=== PATIENT | male | born 1995 | race Caucasian/White ===

== ENCOUNTER → 2018-11-09 08:07 | Day surgery (SDC) | payer BC ==
[~2018-11-09 08:07] MED LIST: Buffered Lidocaine 1% SYRIN* 1 ML/SYRINGE INTRADERM ONE; Bupivacaine 0.5% W/EPI SDV* 10 ML VIAL INJ ONE; Dexamethasone IV* 4 MG/ML 1 ML (4 MG) IV SLOW PU ONE; Dexamethasone IV* 4 MG/ML 1 ML (4 MG) ONE; DiMENhydriNATE IV* 50 MG/ML VIAL IV PUSH PRN; EPINEPHRINE 1 MG/ML 1 ML VIAL ONE; Famotidine IV* 10 MG/ML 2 ML (20 mg) IV ONE; Famotidine IV* 10 MG/ML 2 ML (20 mg) ONE; HYDROmorphone INJ1* 1 MG/ML SYRINGE IV PRN; Ketorolac INJ* 30 MG/ML 1 ML VIAL ONE; Lactated Ringers 1000 ML Bag* 1,000 ML IV SCH; Lidocaine 2% PF * 5 ML VIAL ONE; Midazolam* 1 MG/ML 5 ML VIAL (5 MG) ONE; Naloxone* 0.4 MG/ML 1 ML VIAL IV PRN; Ondansetron INJ* 2 MG/ML VIAL IV PRN; Ondansetron INJ* 2 MG/ML VIAL ONE; Propofol* 10 MG/ML 20 ML BTL ONE; ceFAZolin 2 GM in NS PREMIX(*) 2 GM/100 ML BAG IVPB ONE; fentaNYL* 50 MCG/ML 2 ML VIAL (100 MCG VIAL) IV PRN; fentaNYL* 50 MCG/ML 2 ML VIAL (100 MCG VIAL) ONE; fentaNYL* 50 MCG/ML 5 ML VIAL (250 MCG VIAL) ONE; oxyCODONE/Acetamin 5/325 MG* TAB PO PRN
[2018-11-09 17:26] VITALS: BP 133/75
--- NOTE | 2018-11-10 17:30 | OP ---
OPERATIVE REPORT: DATE OF OPERATION: 11/09/18 DATE OF : 89 SURGEON: Wilber Guaman MD CAFE COOK: TRUPTI Rasmussen A physician technology assistant was required for the length of the procedure for assistance with patient positioning, retraction, instrumentation, and closure. ANESTHESIOLOGIST: Dr. Conti. ANESTHESIA: General anesthesia, local anesthesia with Marcaine 0.5% with epinephrine 20 cc. PRE-OP DIAGNOSES: 1. Left knee anterior cruciate ligament re-tear, chronic. 2. Left knee possible medial meniscus tear. 3. Status post primary left knee anterior cruciate ligament reconstruction with hamstring allograft in 2012 performed in [place], [place], by another surgeon. POST-OP DIAGNOSES: 1. Left knee anterior cruciate ligament re-tear as early as 2015. 2. Left knee medial meniscus tear. 3. Status post left knee anterior cruciate ligament reconstruction with hamstring allograft in 2012 performed in [place], [place], by another surgeon. 4. Left knee loose body. OPERATIVE PROCEDURE: 1. Revision ACL reconstruction, arthroscopic, left knee, performed with Achilles allograft. 2. Left knee arthroscopic medial meniscus repair. 3. Left knee arthroscopic removal of loose body. 4. Modifier 22 for unusual or complex procedure given the nature of revision ACL surgery. This required removal of foreign body, prior instrumentation, re- drilling of the patient's 2 prior femoral and tibial tunnels. ANTIBIOTICS: Ancef 2 g IV. IV FLUIDS: 900 cc crystalloid. [id number] TIME: 190 minutes. TOURNIQUET TIME: Total tourniquet time was 135 minutes at 300 mmHg left thigh tourniquet. There was, however, a long tourniquet holiday of approximately 30 minutes such that the tourniquet was never close to being elevated for 120 continuous minutes. RADIATION EXPOSURE: Mini C-arm was utilized for approximately 2 images. SPECIMENS: Foreign bodies were removed from the femur. This included an interference screw likely made of PEEK. There was also a blue-colored sleeve that the PEEK screw was inside of. Some stump of prior graft was removed from both femoral and tibial tunnels as well as some suture from each tunnel. A loose body x1, small, was removed from the intercondylar notch, earlier on the case. IMPLANTS: Achilles allograft. MiteLudei 10 x 23 mm screw x1. This was placed in the femur. A Synthes 4.5 mm screw and washer was placed on the tibia. FasT-Fix 360 stitches x2. ESTIMATED BLOOD LOSS: Minimal. COMPLICATIONS: None. 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 The patient had had ACL reconstruction surgery in [place], [place], in 2012 or 2013. It sounds as if the patient had a hamstring allograft used for his reconstruction. The patient was unable to get me the operative note from that procedure. The patient did not do any postoperative physical therapy. His knee was stiff at first, but he eventually regained his range of motion. The patient states that he returned to all activities, but reinjured his knee in 2015, and at that point, his knee would give out. These episodes became worse in 2018. MRI was obtained which showed ACL re-tear and possible medial meniscus tear. The patient opted for surgery. The patient and I discussed risks and potential complications of surgery including bleeding, infection, nerve or blood vessel injury, blood clot, ACL re- tear, instrumentation issues, need for 2-stage revision procedure. We discussed at length the pros and cons of allograft and autograft, and I considered using either during this procedure. I obtained a CT scan which showed no significant dilatation, but also no filling in of the tunnels created with the patient's first surgery. These tunnels looked reasonably anatomic to me. Eventually, the patient and I decided on allograft. I had available for surgery both [id number] and Achilles allograft depending on the size of the tunnels encountered. DESCRIPTION OF PROCEDURE: In preoperative holding, the patient signed a written consent. Operative extremity was marked in preoperative holding. The patient was taken back to the operating room and placed supine on operating room table. Sedated and intubated. Tourniquet was placed around the left proximal thigh. A lateral post was applied to the bed. The left lower extremity was prepped and draped. Surgical time-out was performed. Esmarch was applied and tourniquet was elevated to 300 mmHg. Standard left knee anterolateral knee arthroscopy portal was established using standard technique. I entered the patellofemoral compartment. The patient had some fissures in the articular cartilage in the patellofemoral compartment and a loose body was present. I tried to remove this loose body while in the patellofemoral compartment. I made an incision about the superomedial aspect of the knee joint and inserted a grasper, but the loose body eluded me and moved. I moved down to the anterior aspect of the knee inferiorly. The loose body moved into the intercondylar notch. The ACL was noted to clearly be re-torn. I next moved to the medial compartment. I made an anteromedial knee arthroscopy portal under direct visualization. No significant articular cartilage damage in the medial compartment. I entered a probe into the medial compartment and probed the meniscus. There appeared to be a tear about the posterior horn. I therefore decided to do a medial meniscus repair. I note that the tear appeared to be peripheral. I next used all-inside meniscus fixation to repair the meniscus. I used 2 FasT-Fix 360 stitches. I placed 1 through the anterolateral and 1 through the anteromedial portal. After placing these stitches, I re-probed the meniscus and found it to be stable. I next moved briefly to the lateral compartment and saw no meniscus tear or articular cartilage injury. I debrided some synovitic tissue anterior to the intercondylar notch. I moved to the intercondylar notch. There were 2 loose bodies. I removed 1 with a solid grasper. The other eluded me and was not seen later in the case. It was relatively small. Looking into the notch, the ACL was clearly re-torn and I was ready to start ACL revision reconstruction. The knee was next placed in a [facility] knee fontaine. I reentered the knee and debrided soft tissue throughout the intercondylar notch. Fortunately, the femoral tunnel was relatively easily visible and visible inside of it was an interference screw without any degradation. This made me believe that it was a PEEK screw. A bone head grown over part of the screw head and so I used an arthroscopic junior to debride some of that bone. I next inserted a screwdriver coaxial with the screw to remove it. In order to insert a screwdriver coaxial to the screw, I had to essentially maximally flex the knee to at least [address] an accessory anteromedial portal more medial than I typically would. However, I was able to get the screwdriver coaxial and I removed it without significant difficulty. There was then a blue sheath noticed within the femoral tunnel and I removed that with a solid grasper without difficulty. I next performed little bit of a notchplasty in the lateral intercondylar notch with a junior. I next moved back into the femoral tunnel and debrided with an arthroscopic shaver. I viewed the tunnel from anteromedial and anterolateral portals. The tunnel did not appear significantly dilated. I placed through my accessory anteromedial portal a Beath pin. I next placed by hand reamers. I started at 8 mm. I reamed up to 12 mm. At 12 mm, I had clearly freshened up the bone circumferentially or near circumferentially in the tunnel to get good feeling of my revision repair. There were no areas of significant dilatation about the tunnel more than perhaps 1 mm in several spots. The tunnel was approximately 25 mm in depth. I next moved to the tibial tunnel. I made skin incision over the prior scar over the anteromedial lower leg. I dissected down to bone. Encountered former tunnel. No PEEK screw was visible. I debrided up into the tunnel with an arthroscopic shaver a little bit. I then moved to reaming. I placed a Beath pin through the tibial tunnel. I came out in what appeared to be an anatomic position within the knee. This pin was up through some prior graft or prior [place] ACL insertion site material. I reamed up to 12 mm. There was some graft material from the first surgery that was removed from the tibial tunnel more so than had been present in the femoral tunnel. A good freshened up tunnel had been created in the tibia. Tourniquet was dropped and I moved to graft preparation. On the back table, I prepared my Achilles allograft. I shaped the cancellous bone of the appropriate size. It was approximately 22 mm in length to start, but I adjusted the depth and width of it. I cut the Achilles so that my graft was approximately 95 mm long including the bone. I placed #5 FiberWire on the bone end and 2 stitches, 1 with FiberWire #5 and 1 with FiberWire #2 on the tendon end. I held that graft under tension on the back table. Reelevated tourniquet and returned to scoping the knee. I placed a passing suture through my tunnels and used that to pass my graft. I anchored my graft in the femur with a Vidya 10 x 23 mm interference screw. The fit was very good. There was very loud squeaking demonstrating excellent fit of graft. I was very happy with this. The graft distally stopped right at the aperture of the tibia, for a perfect length. I added a screw and washer on the tibia distal to the tibial tunnel aperture. I used mini C-arm to confirm excellent length of the screw. I arthroscoped the knee, which showed excellent robust graft and good position. Unfortunately, I do not think all these arthroscopic photos printed. The graft was very excellent looking. I examined the knee and there was no laxity whatsoever of ACL. Closed the lower leg incision, with a fascial closure followed by a subcutaneous closure using, respectively, Vicryl 0 and Vicryl 2-0 suture. Closed the skin stitches using nylon 3-0 suture and a variety of [id number] , kpkbwl-sx-[id number] running stitches. Local anesthesia, 20 cc was injected about the skin incisions. Xeroform, 4x4s, ABDs, sterile Webril, Jagdish bandage from foot to groin. Cooling unit. Knee brace locked in extension. The patient was awakened, extubated, and brought to the PACU. DISPOSITION: The patient is to be nonweightbearing on crutches for 4 to 6 weeks. The patient will start physical therapy immediately. The patient will follow up in 10 to 14 days in clinic. Wound care instructions provided. The patient was given prescriptions for Percocet as needed for pain control, aspirin b.i.d. for 2 weeks, and Keflex for 5 days. The importance of physical therapy and following instructions has been stressed repeatedly with this patient and he agrees to follow them appropriately. [id number]/CPS #: [id number] MTDD
== END | disposition home or self-care (01) ==
LOC: OR 08:07
PROVIDERS: ATTEND Orthopaedic Surgery
DX: S83.512A Sprain of anterior cruciate ligament of left knee, initial encounter (principal); S83.242A Other tear of medial meniscus, current injury, left knee, initial encounter; M25.562 Pain in left knee; X58.XXXA Exposure to other specified factors, initial encounter; Y92.9 Unspecified place or not applicable
CPT/HCPCS: 76000; 88300; C1713; C1768; C1776; J0690; J1100; J1885; J2250; J2405; J2704; J3010